=== PATIENT | female | born 1940 | race Caucasian/White ===

== ENCOUNTER → 2018-06-02 | Day surgery (SDC) | payer OTHER, MEDICARE ==
--- NOTE | 2018-06-03 07:01 | OP ---
DATE OF OPERATION: 06/02/2018 PREOPERATIVE DIAGNOSIS: Right axillary adenopathy. POSTOPERATIVE DIAGNOSIS: Right axillary adenopathy. PROCEDURE: Right ultrasound-guided fine needle aspiration of right axillary node. ANESTHESIA: Local. ATTENDING SURGEON: Dexter Evans MD ESTIMATED BLOOD LOSS: Minimal. COMPLICATIONS: None. DESCRIPTION OF PROCEDURE: Patient was made aware of the risks and benefits of the procedure and consented. She was placed in the supine position. Under sterile conditions with 1% Lidocaine for local anesthesia, a 22-gauge spinal needle was placed into the lymph node and documented by ultrasound. A fine needle aspiration was performed, and this was smeared on 4 slides as well as given for. All the slides were placed in alcohol fixative. Well tolerated by patient. Sterile dressing applied. Will contact her with results. DEXTER EVANS M.D. [id number]
--- NOTE | 2018-06-04 17:45 | PATH ---
Cytology Non-Gynecological Report Patient Name: DOYLE WAY Med. Rec. #: [id number] /Age/Gender: 1940 (Age: 78) / F Account: [id number] Location: [facility] Taken: 06/03/2018 Received: 06/03/2018 Reported: 06/04/2018 Physicians: Dexter Evans M.D. Specimen(s) Received RIGHT AXILLA Clinical History Right breast cancer, s/p excision 2009 Final Diagnosis AXILLARY LYMPH NODE, RIGHT, FINE NEEDLE ASPIRATION: SATISFACTORY FOR EVALUATION. NEGATIVE FOR MALIGNANT CELLS. HETEROGENEOUS LYMPHOID POPULATION, FAVOR REACTIVE. NO EPITHELIAL CELLS IDENTIFIED. HETEROGENOUS POPULATION OF LYMPHOCYTES, LYMPHOHISTIOCYTIC AGGREGATES, AND RARE TINGIBLE BODY MACROPHAGES PRESENT. SEE COMMENT. Comment: Suggest clinical and radiologic correlation. If there is persistent clinical concern for lymphoproliferative disorder or malignancy, suggest further workup including flow cytometry studies, as warranted. Prior history of right breast cancer is noted. Electronically Signed Tammy Calixto M.D. Gross Description Received 4 smears in 50% alcohol, Pap stained. Approximately 20 cc of bloody fluid received fixed in 50% alcohol. One additional cytofunnel prepared and Pap stained. One cellblock prepared.
== END | disposition home or self-care (01) ==
LOC: FRADUS-SUR 15:09
PROVIDERS: ATTEND Surgery Surgical Oncology
PROC: 07953ZX Drainage of Right Axillary Lymphatic, Percutaneous Approach, Diagnostic (ICD-10-PCS; principal; 2018-06-02)
PROC: BW40ZZZ Ultrasonography of Abdomen (ICD-10-PCS; 2018-06-02)
DX: R59.0 Localized enlarged lymph nodes (principal)
CPT/HCPCS: 10005; 76942; 87899; 88173; 88305-TC